=== PATIENT | female | born 1950 | race American Indian/Alaskan Native ===

== ENCOUNTER 2022-03-31 07:04 | Day surgery (SDC) | payer MEDICARE ==
[~2022-03-31 07:04] MED LIST: SODIUM CHLORIDE 0.9% 1000 ML 1,000 ML IV SCH
--- NOTE | 2022-03-31 08:36 | Anesthesia Consultation ---
Anesthesia Consult and Med Hx Date of service: 03/31/22 - Airway Anesthetic Teeth Evaluation: Good, Partials ROM Head & Neck: Adequate Mental/Hyoid Distance: Adequate Mallampati Class: Class III Intubation Access Assessment: Possibly Difficult - Pre-Operative Health Status ASA Pre-Surgery Classification: ASA2 Proposed Anesthetic Plan: MAC - Pulmonary Hx Respiratory Symptoms: No - Cardiovascular System Hx Hypertension: No - Central Nervous System CVA: No - Endocrine Hx Renal Disease: No Hx Liver Disease: No Hx Insulin Dependent Diabetes: Yes (prn insulin) Hx Thyroid Disease: No - Additional Comments Anesthesia Medical History Comments: No hx anesthetic complications.
--- NOTE | 2022-03-31 08:36 | Anesthesia Day of Surgery ---
Anesthesia Day of Surgery - Day of Surgery Patient Examined: Yes Patient H&P Reviewed: Yes Patient is NPO: Yes
[2022-03-31] MEDS ORDERED: propofoL 200 MG/20 ML VIAL IV ONE ×2 (09:25→09:26)
--- NOTE | 2022-03-31 10:10 | Short Stay Summary ---
Short Stay Documentation Date of service: 03/31/22 Narrative H&P: The patient presents for surveillance colonoscopy for hx of polyps. Last study was 6 years ago. - History Past Medical History: cancer (history of breast cancer), diabetes, other (psoriasis) Past Surgical History: , Other (Mastectomy and implants) Social history: no significant social history - Allergies and Medications Current Medications: Allergies shellfish derived Allergy (Verified 03/30/22 15:15) Unknown strawberry Allergy (Verified 03/30/22 15:15) Unknown Home Medications Medication Instructions Recorded Confirmed Last Taken Type Apremilast [Otezla] 03/31/22 Unknown History Atorvastatin [Lipitor] 03/31/22 Unknown History Biotin 03/31/22 Unknown History Clobetasol Propionate 03/31/22 03/31/22 Unknown History Levemir Flextouch 03/31/22 Unknown History Potassium Chloride 03/31/22 Unknown History Vit B Complx/Folic AC/Herb 288 03/31/22 Unknown History amLODIPine 03/31/22 Unknown History Active Medications Sodium Chloride (Nacl 0.9% 1000 Ml) 1,000 mls @ 50 mls/hr IV DIRECT JASMIN - Physical exam General appearance: no acute distress, well-nourished Integumentary: no rash, no growths, no abnormal pigmentation HEENT: Atraumatic, PERRLA, EOMI, Mucous membr. moist/pink Lungs: Clear to auscultation, Normal air movement Breasts: deferred Heart: Regular rate, Normal S1, Normal S2, No murmurs Gastrointestinal: normoactive bowel sounds, no tenderness, no distended, no masses, no guarding Female Genitourinary: deferred Rectal Exam: normal exam-external/orifice, normal rectal tone, no mass Extremities: no ischemia, pulses intact, pulses symmetrical, No edema, normal temperature, normal color, Full ROM Neurological: Normal gait, Normal speech, Strength at 5/5 X4 ext, Normal tone, Sensation intact, Cranial nerves 3-12 NL - Brief post op/procedure progress note Date of procedure: 03/31/22 Findings: see dictation Estimated blood loss: none Pathology: list (cecal polyp) Specimen disposition: to lab Condition: stable - Disposition Disposition: HOME / SELF CARE / HOMELESS - Discharge Diagnoses (1) History of colon polyps Status: Acute Short Stay Discharge Plan Activity: other (no driving for 24 hours) Weight Bearing Status: Full Weight Bearing Diet: diabetic Follow up with: MARYBETH MCKEON MD [Primary Care Provider] - 7 Days
--- NOTE | 2022-03-31 10:12 | Operative Report ---
Operative Report Operative Report: Date of procedure: 03/31/2020 Preprocedure diagnosis: History of colon polyps. Last study 6 years ago. Post procedure diagnosis: Diminutive cecal polyp. Procedure: Colonoscopy to the cecum with cold snare polypectomy. Endoscopist: Dr. Loja Anesthesia: Monitored anesthesia care per anesthesia department Estimated blood loss: 0 Medications: Monitored anesthesia care. See separate report by anesthesia for details. After careful discussion of the nature and purpose of the procedure as well as details of the technique risks benefits and alternatives the patient gave consent. Please see recent history and physical from the office. The patient was placed in the left lateral decubitus position and medicated per anesthesia. A rectal exam was performed sphincter tone was normal there were no masses palpable. The [place] 570 scope was passed transanally and advanced under continuous di rect vision without difficulty to the cecum. The colon was well prepared. The cecum revealed a 3 mm sessile polyp. The polyp was removed with cold snare resection and retrieved by suction. The ascending colon was normal and on forward and retroflexed views. The transverse colon, descending colon, and sigmoid colon were normal. The rectum was normal on forward and retroflexed views. The procedure was well-tolerated overall and the patient was observed in recovery. Conclusions: Diminutive cecal polyp. Normal colon otherwise to the cecum. Plan: Await pathology. Repeat colonoscopy in 5 years. Signed electronically: Vince Loja M.D.
--- NOTE | 2022-03-31 11:14 | Post Anesthesia Evaluation ---
- Post Anesthesia Evaluation Patient Participated: Yes Airway Patent: Yes Stable Respiratory Function: Yes Nausea/Vomiting: No Temp > 96.8F: Yes Pain Manageable: Yes Adequeate Hydration: Yes Anesthesia Complications: No
[2022-03-31 14:44] VITALS: BP 121/73
== END 2022-03-31 07:05 | disposition home or self-care (01) ==
LOC: GIO 07:04
PROVIDERS: ATTEND Internal Medicine Gastroenterology
DX: Z12.11 Encounter for screening for malignant neoplasm of colon (principal); D12.0 Benign neoplasm of cecum; E11.9 Type 2 diabetes mellitus without complications; Z86.010 Personal history of colon polyps; Z79.899 Other long term (current) drug therapy; Z91.013 Allergy to seafood; Z88.8 Allergy status to other drugs, medicaments and biological substances; Z85.3 Personal history of malignant neoplasm of breast; Z90.11 Acquired absence of right breast and nipple
CPT/HCPCS: 45385; 82962; 88305; J7030; J2704